=== PATIENT | male | born 1975 | race African-American/Black ===

== ENCOUNTER 2023-10-14 22:27 | Emergency (ER) | payer BC ==
[2023-10-14] MEDS ORDERED: hydrALAZINE 20 MG/ML VIAL ONE (22:57)
[2023-10-14 23:17] LABS: Anion Gap 16 mmol/L (10-20); BUN (Urea Nitrogen) 12 mg/dL (8.9-20.6); Calc. Creatinine Clearance 0 mL/min (70-130); Calcium 9.8 mg/dL (7.8-10.44); Carbon Dioxide 22 mmol/L (22-29); Chloride 103 mmol/L (98-107); Estimated GFR 77; Glucose 94 mg/dL (70-105); Potassium 3.9 mmol/L (3.5-5.1); Sodium 137 mmol/L (136-145)
[2023-10-14] MEDS ORDERED: Lorazepam 2 MG/ML VIAL ONE (23:59)
[2023-10-15 00:02] LABS: #Basophils 0.07 10x3/uL (0.0-0.2); #Eosinphils 0.53 10x3/uL (0.0-0.5); #Monocytes 0.55 10x3/uL (0.0-1.1); %Basophils 1.2 % (0.0-2.0); %Eosinophils 8.9 % (0.0-6.0); %Lymphocytes 42.1 % (18.0-47.0); %Monocytes 9.2 % (0.0-10.0); %Neutrophils 38.4 % (40.0-75.0); Hematocrit 40.6 % (38.8-50.0); Hemoglobin 15.6 g/dL (13.5-17.5); Mean Corpuscular HGB CONC 38.4 g/dL (32.0-36.0); Mean Corpuscular Hemoglobin 27.4 pg (27.0-33.0); Mean Corpuscular Volume 71.2 fL (81.2-95.1); Mean Platelet Volume 12.4 fL (7.4-10.4); Platelet Count 207 10x3/uL (150-450); RBC Distribution Width 14.1 % (11.5-14.5)
[2023-10-15] MEDS ORDERED: hydrALAZINE 20 MG/ML VIAL ONE (00:27)
[2023-10-15 00:34] LABS: Platelet Adequacy Comment Appears Adequate
[2023-10-15 00:35] LABS: Microcytosis MARKED = >30 cells (100X) (0-5/hpf)
== END 2023-10-15 01:35 | disposition home or self-care (01) ==
LOC: CSHERS 22:27
DX: I10 Essential (primary) hypertension (principal); F17.210 Nicotine dependence, cigarettes, uncomplicated
CPT/HCPCS: 80048; 85025; 93005; 96374; 96375; 96376; J0360; J2060

== ENCOUNTER 2025-03-07 22:33 | Emergency (ER) | payer BC, OTHER, SELFPAY ==
[2025-03-08] MEDS ORDERED: Famotidine/PF 20 mg/2ml Vial ONE (00:27)
[2025-03-08] MEDS ORDERED: diphenhydrAMINE 50 MG/ML VIAL ONE (00:27)
[2025-03-08] MEDS ORDERED: Tranexamic Acid 1,000 MG/10 ML VIAL ONE (00:43)
[2025-03-08 00:59] LABS: #Basophils 0.05 10x3/uL (0.0-0.2); #Eosinophils 0.38 10x3/uL (0.0-0.5); #Monocytes 0.82 10x3/uL (0.0-1.1); #Neutrophils 3.40 10x3/uL (1.5-8.4); %Basophils 0.7 % (0.0-2.0); %Eosinophils 5.4 % (0.0-6.0); %Lymphocytes 34.0 % (18.0-47.0); %Monocytes 11.6 % (0.0-10.0); %Neutrophils 48.2 % (40.0-75.0); Hematocrit 39.8 % (38.8-50.0); Hemoglobin 14.0 g/dL (13.5-17.5); Mean Corpuscular Hemoglobin 25.7 pg (27.0-33.0); Mean Corpuscular Volume 73.2 fL (81.2-95.1); Platelet Count 226 10x3/uL (150-450); Red Blood Cell (RBC) Count 5.44 10x6/uL (4.32-5.72); White Blood Cell (WBC) Count 7.06 10x3/uL (3.5-10.5)
[2025-03-08 01:12] LABS: ALT (SGPT) 21 U/L (Less than 45); AST (SGOT) 26 U/L (11-34); Albumin 4.2 g/dL (3.1-4.5); Alkaline Phosphatase 74 U/L (40-110); Anion Gap 13 mmol/L (10-20); BUN (Urea Nitrogen) 14 mg/dL (8.9-20.6); Bilirubin, Total 0.5 mg/dL (0.3-1.2); Calc. Creatinine Clearance 0 mL/min (70-130); Calcium 10.0 mg/dL (7.8-10.44); Carbon Dioxide 25 mmol/L (22-29); Chloride 104 mmol/L (98-107); Globulin 3.4 g/dL (2.4-3.5); Glucose 99 mg/dL (70-105); Potassium 4.3 mmol/L (3.5-5.1); Sodium 138 mmol/L (136-145)
== END 2025-03-08 03:37 | disposition home or self-care (01) ==
LOC: CSHERS 22:33
DX: T78.3XXA Angioneurotic edema, initial encounter (principal); J45.909 Unspecified asthma, uncomplicated; F17.210 Nicotine dependence, cigarettes, uncomplicated
CPT/HCPCS: 36415; 80053; 85025; 86850; 86900; 86901; 96374; 96375; J1200; J1308; J2919